=== PATIENT | female | born 1940 | race Caucasian/White ===

== ENCOUNTER 2016-06-27 19:58 | Emergency (ER) | payer MEDICARE ==
[~2016-06-27] VITALS: Ht 154.9 cm; Wt 66.0 kg
[2016-06-27 20:01] VITALS: BP 161/73; PULSE 74; RESP 16; TEMP 98.3; O2SAT 96
--- NOTE | 2016-06-27 21:10 | PD ---
HPI Chief Complaint: Eye Problems/Injury Time Seen by Provider: 21:06 Travel History International Travel<30 days: No Contact w/Intl Traveler<30days: No Traveled to known affect area: No History of Present Illness HPI Patient comes in complaining of bilateral eye irritation and discharge began around 1500 today. Patient states around 1300 her eyes began to itch and water approximately 2 hours later she was having irritation and a yellowish discharge. Patient states she went to the pharmacy was told by the pharmacist that she might have pink eye. Patient denies being around anyone else with similar, trauma, change in vision, foreign body sensation, or contact lens use. PFSH Past Medical History High Cholesterol: Yes Social History Alcohol Use: Yes Tobacco Use: No Substance Use: No Allergies-Medications (Allergen,Severity, Reaction): Coded Allergies: No Known Allergies (Unverified , 06/27/16) Reported Meds & Prescriptions Reported Meds & Active Scripts Active Erythromycin Opth Oint 5 Mg/Gm Oint 1 Applic EACH EYE QID Review of Systems Except as stated in HPI: all other systems reviewed are Neg Physical Exam Narrative GENERAL: Well-developed, overly nourished, in no acute distress, and non-ill appearing. SKIN: Warm and dry. HEAD: Atraumatic. Normocephalic. EYES: Pupils equal and round. EOMI. No scleral icterus. Bilateral injection with yellowish/green drainage. ENT: No nasal bleeding or discharge. Mucous membranes pink and moist. NECK: Trachea midline. Supple. No nuclear rigidity. RESPIRATORY: No accessory muscle use. No respiratory distress. MUSCULOSKELETAL: No obvious deformities. No clubbing. No cyanosis. No edema. Full range of motion. NEUROLOGICAL: Awake and alert. No obvious cranial nerve deficits. Motor grossly within normal limits. Normal speech. PSYCHIATRIC: Appropriate mood and affect; insight and judgment normal. Data Data Last Documented VS Vital Signs Date Time Temp Pulse Resp B/P Pulse Ox O2 Delivery O2 Flow Rate FiO2 06/27/16 20:01 98.3 74 16 161/73 96 Room Air MDM Medical Decision Making Medical Screen Exam Complete: Yes Emergency Medical Condition: Yes Differential Diagnosis Viral conjunctivitis, allergic conjunctivitis, bacterial conjunctivitis, other Narrative Course Patient with mild conjunctivitis. No evidence of foreign body by history or exam. No history to suspect corneal ulceration as well. There is no evidence of iritis, glaucoma, preseptal cellulitis, periorbital or orbital cellulitis. Will place patient on ophthalmologic antibiotics for nonspecific conjunctivitis. This was discussed with the patient. The patient was instructed to follow up with their physician, public health policy analyst, or return here if worsened, increased pain, decreased vision, swelling around the eye or as needed. Ophthalmology referral was given if persists. The patient agreed with plan. Patient in no obvious distress upon re-evaluation. Patient was asked if they wanted to speak to my attending, which the patient did not wish to do at this time. Any questions/concerns in reference to patient diagnosis/condition discussed and clarified prior to patient's discharge. Reinforced sheer importance of close follow up with patient's primary physician or primary care clinic and/or public health policy analyst. Instructed patient to return to ED immediately, if symptoms return/worsen. Pt showed understanding of above instructions. Further instructions and recommendations were detailed in discharge paperwork. Pt ambulated without difficulty out of ED at discharge. Diagnosis Primary Impression: Bilateral conjunctivitis Qualified Code: H10.33 - Acute conjunctivitis of both eyes, unspecified acute conjunctivitis type Referrals: Ashley Reeves MD Patient Instructions: Conjunctivitis (ED), General Instructions Additional Instructions: Follow-up with public health policy analyst in 3-5 days for reevaluation. Take all medication as prescribed. Wash hands before and after applying medication. Wash hands frequently to prevent spreading and reinfection. Gently clean eyelids using baby shampoo one to 2 times daily. Throw away your eye makeup to help prevent reinfection. Return to the emergency department if symptoms get worse. Med/Other Pt SpecificInfo: Prescription(s) given Scripts Erythromycin Opth Oint 5 Mg/Gm Oint1 Applic EACH EYE QID #1 TUBE Ref 0 Prov:Binh Herrera MD 06/27/16 Disposition: 01 DISCHARGE HOME Condition: Stable Yobany Milner Jun 27, 2016 21:10
[2016-06-27] MEDS ORDERED: ERYTOIN10 EACH EYE (21:12)
== END 2016-06-27 21:50 | disposition home or self-care (01) ==
LOC: NETRI 19:58
DX: H10.9 Unspecified conjunctivitis (principal); E78.00 Pure hypercholesterolemia, unspecified
CPT/HCPCS: 99283